=== PATIENT | female | born 1985 | race Caucasian/White ===

== ENCOUNTER 2016-06-14 | Emergency (ER) | payer OTHER | END 2016-06-15 00:47 | disposition left against medical advice (07) | DX: Z53.21 Procedure and treatment not carried out due to patient leaving prior to being seen by health care provider (principal) ==

== ENCOUNTER 2016-06-21 12:52 | Emergency (ER) | payer OTHER | END 2016-06-21 14:05 | disposition home or self-care (01) | LOC: ER1 12:52 | DX: J06.9 Acute upper respiratory infection, unspecified (principal); B34.9 Viral infection, unspecified; G43.909 Migraine, unspecified, not intractable, without status migrainosus; F17.210 Nicotine dependence, cigarettes, uncomplicated; Z79.899 Other long term (current) drug therapy | CPT/HCPCS: 87081; 87880; 99283 ==

== ENCOUNTER 2016-07-01 16:29 | Emergency (ER) | payer OTHER | END 2016-07-01 18:18 | disposition home or self-care (01) | LOC: ER1 16:29 | DX: R51 Headache (principal); R11.2 Nausea with vomiting, unspecified; G43.909 Migraine, unspecified, not intractable, without status migrainosus; Z79.899 Other long term (current) drug therapy | CPT/HCPCS: 96372; 99283; J2270; J2550 ==

== ENCOUNTER 2016-07-04 17:59 | Emergency (ER) | payer OTHER | END 2016-07-04 19:00 | disposition left against medical advice (07) | LOC: ER1 17:59 | DX: R51 Headache (principal); F91.8 Other conduct disorders; G43.909 Migraine, unspecified, not intractable, without status migrainosus; F17.200 Nicotine dependence, unspecified, uncomplicated; Z79.899 Other long term (current) drug therapy | CPT/HCPCS: 99283 ==

== ENCOUNTER 2016-08-07 21:41 | Emergency (ER) | payer OTHER | END 2016-08-08 01:45 | disposition home or self-care (01) | LOC: ER1 21:41 | DX: R51 Headache (principal); R11.0 Nausea; G43.909 Migraine, unspecified, not intractable, without status migrainosus; F17.210 Nicotine dependence, cigarettes, uncomplicated; Z79.899 Other long term (current) drug therapy | CPT/HCPCS: 96361; 96374; 96375; 99283; J1200; J1885; J2765; J7030; J7050 ==

== ENCOUNTER 2016-08-26 17:02 | Emergency (ER) | payer OTHER | END 2016-08-26 19:10 | disposition home or self-care (01) | LOC: ER1 17:02 | DX: S60.041A Contusion of right ring finger without damage to nail, initial encounter (principal); S60.051A Contusion of right little finger without damage to nail, initial encounter; F17.210 Nicotine dependence, cigarettes, uncomplicated; Z79.899 Other long term (current) drug therapy; W23.0XXA Caught, crushed, jammed, or pinched between moving objects, initial encounter; Y92.009 Unspecified place in unspecified non-institutional (private) residence as the place of occurrence of the external cause | CPT/HCPCS: 73130; 99283 ==